=== PATIENT | male | born 1980 | race Caucasian/White ===

== ENCOUNTER 2017-01-26 06:06 | Emergency (ER) | payer OTHER ==
[~2017-01-26] VITALS: Wt 80.5 kg
[2017-01-26] MEDS ORDERED: HYDROCODONE/APAP (5/325) TAB PO ONE (07:00)
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
[2017-01-26] MEDS ORDERED: NAPR-260 PO (07:35)
[2017-01-26] MEDS ORDERED: CYCL-319 PO (07:35)
[2017-01-26] MEDS ORDERED: HYDR-906 PO (07:35)
[2017-01-26] MEDS ORDERED: NEOM1PAC TP (07:38)
== END 2017-01-26 08:01 | disposition home or self-care (01) ==
LOC: FTE 06:06
DX: S52.615A Nondisplaced fracture of left ulna styloid process, initial encounter for closed fracture (principal); R07.9 Chest pain, unspecified; V49.40XA Driver injured in collision with unspecified motor vehicles in traffic accident, initial encounter
CPT/HCPCS: 71010; 73000